=== PATIENT | female | born 1995 | race Hispanic/Latino ===

== ENCOUNTER 2017-04-01 02:12 | Emergency (ER) | payer SELFPAY ==
[2017-04-01 02:20] VITALS: BP 141/92; PULSE 92; RESP 16; TEMP 98.4; O2SAT 100
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
== END 2017-04-01 03:20 | disposition home or self-care (01) ==
LOC: H.ER 02:12
DX: S09.90XA Unspecified injury of head, initial encounter (principal); S06.0X0A Concussion without loss of consciousness, initial encounter; Y04.0XXA Assault by unarmed brawl or fight, initial encounter; Y92.89 Other specified places as the place of occurrence of the external cause